=== PATIENT | female | born 1985 | race Caucasian/White ===

== ENCOUNTER 2017-05-26 12:36 | Emergency (ER) | payer MEDICAID ==
[2017-05-26] MEDS ORDERED: NS 1,000 ML IV ONE (13:10)
--- NOTE | 2017-05-26 13:24 | CPEKG ---
Heart Rate: 74 RR Interval: 811 P-R Interval: 132 QRSD Interval: 86 QT Interval: 388 QTC Interval: 431 P [place]: 44 QRS [place]: 61 T Wave [place]: 20 EKG Severity - NORMAL ECG - EKG Impression: SINUS RHYTHM Electronically Signed By: Phani Grullon 26-May-2017 13:58:29
--- NOTE | 2017-05-26 13:29 | EDPHY ---
H & P Smoking Status: Never smoked Time Seen by Provider: 05/26/17 13:01 HPI/ROS: CHIEF COMPLAINT: Near-syncope, sore throat HISTORY OF PRESENT ILLNESS: 32-year-old female presents to the emergency department by private vehicle after having a near syncopal event. Patient states that she had a sore throat that developed yesterday. She felt little nauseous and achy last night and did not sleep well. She was driving to her doctor's office today and had a near syncopal episode while she was driving. She pulled over and then she states that she got out of the car and was lying in the back seat until the symptoms passed. She admitted to [facility] and they found that her blood pressure was very low and advised that she come to the emergency department for evaluation. She denies dysphagia. Denies any other cold symptoms such as rhinorrhea, nasal congestion or cough. Subjective fevers and chills. Nausea but no vomiting. No diarrhea. No known ill contacts. Last menstrual period was 2 weeks ago. She denies . She has a copper IUD. REVIEW OF SYSTEMS: Constitutional: No fever, no chills. Eyes: No double or blurry vision. ENT: sore throat. Respiratory: No cough, no shortness of breath. Cardiac: No chest pain. Gastrointestinal: No abdominal pain, vomiting or diarrhea. Genitourinary: No dysuria. Musculoskeletal: No neck or back pain. Skin: No rashes. Neurological: No headache. (Paulina Crespo) Past Medical/Surgical History: Negative (Zak,Paulina M) Social History: Single and lives in [place] (Zak,Paulina M) Physical Exam: General Appearance: Alert, no distress. 102/67, 97% on room air. Heart rate 80. Afebrile. Nontoxic appearing. Eyes: Pupils equal and round. Extraocular motions are all intact. ENT: Mouth: Mucous membranes moist. Mild posterior pharyngeal injection noted. No exudate. No uvular swelling or shift. No muffled voice or trismus. Respiratory: No wheezing, rhonchi, or rales, lungs are clear to auscultation. Cardiovascular: Regular rate and rhythm. Gastrointestinal: Abdomen is soft and nontender, no masses, no rebound or guarding, bowel sounds normal. Neurological: Alert and oriented x 3, cranial nerves II through XII grossly intact Skin: Warm and dry, no rashes. Musculoskeletal: Nontender to palpate along the cervical, thoracic or lumbar spine. Neck is supple. Extremities: Full range of motion and no peripheral edema. Psychiatric: Patient is oriented X 3, there is no agitation. (Paulina Crespo) Constitutional: Initial Vital Signs Temperature (C) 37.2 C 05/26/17 12:39 Heart Rate 82 05/26/17 12:39 Respiratory Rate 18 05/26/17 12:39 Blood Pressure 102/67 05/26/17 12:39 O2 Sat (%) 96 05/26/17 12:39 O2 Delivery Mode Room Air Allergies/Adverse Reactions: No Known Allergies Allergy (Unverified 05/26/17 12:38) Home Medications: Medication Instructions Recorded Levothyroxine 05/26/17 Prozac 20 MG (*) 05/26/17 Medical Decision Making ED Course/Re-evaluation: 32-year-old female presents to the emergency department with near syncope and sore throat. Rapid strep screen was negative. Laboratory studies [place] [id number]. Chemistries are unremarkable. Blood pressure has been 100 over 60s. She is not tachycardic. Has a repeat temperature 37.4 degrees. The patient received IV normal saline. She was ambulatory. She did not feel lightheaded or dizzy. No recurring syncopal episodes. Her EKG was unremarkable. She was not orthostatic. See orthostatic vital signs. She was instructed to return to the emergency department if she had any other change in symptoms or felt worse in any way. Case was discussed with Dr. Phani Grullon, secondary supervising physician, who did not directly evaluate the patient but agrees with treatment plan. (Paulina Crespo) I did not see this patient while she was in the emergency department. However her care was discussed with the PA while the patient was in the department. I reviewed the EKG while patient was in the department. Agree with treatment plan and management (Phani Grullon) Differential Diagnosis: Near syncope including but not limited to vasovagal syncope, arrhythmia, dehydration, and blood loss. (Paulina Crespo) - Data Points Laboratory Results: Laboratory Results 05/26/17 13:25 05/26/17 13:25 Medications Given: Discontinued Medications Sodium Chloride (Ns) 1,000 mls @ 0 mls/hr IV ONCE ONE PRN Reason: Wide Open Stop: 05/26/17 13:11 Last Admin: 05/26/17 13:32 Dose: 1,000 mls Departure - Departure Disposition: Home, Routine, Self-Care Clinical Impression: Near syncope, Sore throat Condition: Good Instructions: Pharyngitis (ED), Near Syncope (ED) Additional Instructions: Call [phone] for results of your throat culture in 48 hours. Adult Pain & Fever Control: We recommend Acetaminophen (Tylenol) and Ibuprofen (Motrin,Advil) for pain and fever control. When fever is high or pain severe, both drugs can be used at the same time, but at different intervals. Please note the time differences. Your dose is: Acetaminophen 1000mg every 4 to 6 hours Ibuprofen 600mg every 8 hours with food Note: do not take Acetaminophen with Hydrocodone (Vicodin, Lortab) or Oycodone (Percocet). These medications also contain Acetaminophen. No more than 3000mg of Acetaminophen should be taken in 24 hours (for an adult). Referrals: CHRISTIN ABRAHAM [Other] - 1-2 days without fail
[2017-05-26 13:44] LABS: PLATELET COUNT 260 10^3/uL (150-400)
[2017-05-26 15:03] VITALS: BP 107/54
== END 2017-05-26 15:31 | disposition home or self-care (01) ==
DX: R55 Syncope and collapse (principal); J02.9 Acute pharyngitis, unspecified